=== PATIENT | male | born 1970 | race Caucasian/White ===

== ENCOUNTER 2020-10-10 09:42 | Outpatient (CLI) | payer BC | END 2020-10-10 09:43 | disposition home or self-care (01) | LOC: BICMAMMO 09:42 | PROVIDERS: ATTEND Family Medicine | DX: N63.0 Unspecified lump in unspecified breast (principal); N62 Hypertrophy of breast | CPT/HCPCS: 77066; G0279 ==

== ENCOUNTER 2021-04-08 12:18 | Outpatient (CLI) | payer BC | END 2021-04-08 12:19 | disposition home or self-care (01) | LOC: TBSIIMAG 12:18 | PROVIDERS: ATTEND Neurological Surgery | DX: M51.16 Intervertebral disc disorders with radiculopathy, lumbar region (principal) | CPT/HCPCS: 72148 ==